=== PATIENT | male | born 1970 | race Caucasian/White ===

== ENCOUNTER 2020-02-17 07:57 | Outpatient (REF) | payer BC, SELFPAY | END 2020-02-17 07:58 | disposition home or self-care (01) | LOC: HO.WFDLDS 07:57 | PROVIDERS: Visit Provider Internal Medicine | DX: Z20.828 Contact with and (suspected) exposure to other viral communicable diseases (principal) | CPT/HCPCS: 36415; C9803; U0003 ==

== ENCOUNTER 2020-04-11 14:18 | Outpatient (REF) | payer BC, SELFPAY | END 2020-04-11 14:19 | disposition home or self-care (01) | LOC: HO.LNP 14:18 | PROVIDERS: Visit Provider Family Medicine | DX: Z20.822 Contact with and (suspected) exposure to COVID-19 (principal); R05 Cough | CPT/HCPCS: U0003; U0005 ==